=== PATIENT | male | born 2000 | race Two or more races ===

== ENCOUNTER 2021-03-09 23:17 | Emergency (ER) | payer SELFPAY | END 2021-03-09 23:56 | LOC: MW.ED 23:17 | DX: Z02.89 Encounter for other administrative examinations (principal) | CPT/HCPCS: 99283 ==

== ENCOUNTER 2022-04-19 19:31 | Emergency (ER) | payer OTHER | END 2022-04-19 19:53 | disposition left against medical advice (07) | LOC: MW.ED 19:31 | DX: Z53.21 Procedure and treatment not carried out due to patient leaving prior to being seen by health care provider (principal) ==